=== PATIENT | male | born 1960 | race African-American/Black ===

== ENCOUNTER 2017-06-17 13:01 | Inpatient (IN) | payer OTHER ==
[2017-06-17 14:23] VITALS: BMI 24.7
--- NOTE | 2017-06-17 16:28 | HP ---
CIWA Score - CIWA Score Nausea/Vomitin-Mild Nausea/No Vomiting Muscle Tremors: 4-Moderate,w/Arms Extend Anxiety: 4-Mod. Anxious/Guarded Agitation: 4-Moderately Restless Paroxysmal Sweats: 1-Minimal Palms Moist Orientation: 0-Oriented Tacttile Disturbances: 0-None Auditory Disturbances: 0-None Visual Disturbances: 0-None Headache: 0-None Present CIWA-Ar Total Score: 14 Admission ROS BHS - HPI Chief Complaint: WITHDRAWAL SX Allergies/Adverse Reactions: Allergies Allergy/AdvReac Type Severity Reaction Status Date / Time No Known Allergies Allergy Verified 06/17/17 16:00 History of Present Illness: 56 YEARS OLD MALE WITH LONG HISTORY OF ALCOHOL NICOTINE COCAINE DEPENDENCE HAS POSITIVE PPD AND DEPRESSION IS ADMITTED TO DETOX Exam Limitations: No Limitations - Ebola screening Have you traveled outside of the country in the last 21 days: No Have you had contact with anyone from an Ebola affected area: No Have you been sick,other than usual withdrawal symptoms: No Do you have a fever: No - Review of Systems Constitutional: Loss of Appetite, Unintentional Wgt. Loss, Unexplained wgt Loss EENT: reports: Blurred Vision (EYE GLASSES) Respiratory: reports: No Symptoms reported Cardiac: reports: No Symptoms Reported GI: reports: Nausea, Poor Appetite, Poor Fluid Intake, Abdominal cramping : reports: No Symptoms Reported Musculoskeletal: reports: Joint Pain (KNEES + SHOULDERS X 10 YEARS) Integumentary: reports: No Symptoms Reported Neuro: reports: Tremors Endocrine: reports: No Symptoms Reported Hematology: reports: No Symptoms Reported Psychiatric: reports: Judgement Intact, Orientated x3, Depressed Other Systems: Reviewed and Negative Patient History - Patient Medical History Hx Anemia: No Hx Asthma: No Hx Chronic Obstructive Pulmonary Disease (COPD): No Hx Cancer: No Hx Cardiac Disorders: No Hx Congestive Heart Failure: No Hx Hypertension: No Hx Hypercholesterolemia: No Hx Pacemaker: No HX Cerebrovascular Accident: No Hx Seizures: No Hx Dementia: No Hx Diabetes: No Hx Gastrointestinal Disorders: No Hx Liver Disease: No Hx Genitourinary Disorders: No Hx Sexually Transmitted Disorders: No Hx Renal Disease (ESRD): No Hx Thyroid Disease: No Hx Human Immunodeficiency Virus (HIV): No Hx Hepatitis C: No Hx Depression: Yes Hx Suicide Attempt: No Hx Bipolar Disorder: No Hx Schizophrenia: No - Patient Surgical History Past Surgical History: No Hx Neurologic Surgery: No Hx Cataract Extraction: No Hx Cardiac Surgery: No Hx Lung Surgery: No Hx Breast Surgery: No Hx Breast Biopsy: No Hx Abdominal Surgery: No Hx Appendectomy: No Hx Cholecystectomy: No Hx Genitourinary Surgery: No Hx Orthopedic Surgery: No - PPD History Previous Implant?: Yes Documented Results: Positive w/o proof Implanted On Prior R Admission?: No PPD to be Administered?: No - Smoking Cessation Smoking history: Current every day smoker Have you smoked in the past 12 months: Yes Aproximately how many cigarettes per day: 10 Cigars Per Day: 0 Hx Chewing Tobacco Use: No Initiated information on smoking cessation: Yes 'Breaking Loose' booklet given: 06/17/17 - Substance & Tx. History Hx Alcohol Use: Yes Hx Substance Use: Yes Substance Use Type: Alcohol, Cocaine Hx Substance Use Treatment: Yes (01/2017 [facility]) - Substances Abused Alcohol Route: Oral Frequency: Daily Amount used: liquor- 2 pints, beer- 1 six pack Age of first use: 14 Date of Last Use: 06/16/17 Crack Route: Smoking Frequency: 3-6 times per week Amount used: 20 dimes Age of first use: 26 Date of Last Use: 06/16/17 Family Disease History - Family Disease History Family Disease History: [place]: Father (), Other: Father, Mother () Admission Physical Exam S - Vital Signs Vital Signs: Vital Signs - 24 hr 06/17/17 14:21 Temperature 95.6 F L Pulse Rate 50 L Respiratory 18 Rate Blood Pressure 120/67 - Physical General Appearance: Yes: Appropriately Dressed, Mild Distress (PATIENT STATES THAT LIBRIUM 50 MG X 4 DOSES IS TOO STRONG, REQUESTS 25 MG X 4 DOSES), Thin, Tremorous, Irritable, Sweating, Anxious HEENTM: Yes: Hearing grossly Normal, Normal ENT Inspection, Normocephalic, Normal Voice, Other (EYE GLASSES) Respiratory: Yes: Chest Non-Tender, Lungs Clear, Normal Breath Sounds, No Respiratory Distress, No Accessory Muscle Use Neck: Yes: Supple, Trachea in good position Cardiology: Yes: Regular Rhythm, S1, S2, Bradycardia ("ALWAYS LOW") Abdominal: Yes: Normal Bowel Sounds, Non Tender, Soft Genitourinary: Yes: Within Normal Limits Back: Yes: Normal Inspection Musculoskeletal: Yes: full range of Motion, Gait Steady, Muscle Pain (KNEES + SHOULDERS) Extremities: Yes: Normal Inspection, Normal Range of Motion, Non-Tender, Tremors Neurological: Yes: Fully Oriented, Alert, Motor Strength 5/5, Normal Response, Depressed Affect Integumentary: Yes: Warm Lymphatic: Yes: Within Normal Limits - Diagnostic (1) Alcohol dependence with uncomplicated withdrawal Current Visit: Yes Status: Acute (2) Cocaine dependence, uncomplicated Current Visit: Yes Status: Chronic (3) Nicotine dependence Current Visit: Yes Status: Acute Qualifiers: Nicotine product type: cigarettes Substance use status: in withdrawal Qualified Code(s): F17.213 - Nicotine dependence, cigarettes, with withdrawal (4) Positive PPD, treated Current Visit: Yes Status: Resolved Cleared for Admission [facility] - Detox or Rehab [facility] Level of Care: Medically Managed Detox Regimen/Protocol: Librium [facility] Breath Alcohol Content Breath Alcohol Content: 0 Urine Drug Screen - Results Drug Screen Negative: No Urine Drug Screen Results: GIANA-Cocaine
[2017-06-17] MEDS ORDERED: MENTHOL/PHENOL 1 EACH UD MM PRN (16:29)
[2017-06-17] MEDS ORDERED: MAG HYDROX/AL HYDROX/SIMETH 30 ML UNIT-DOSE CUP PO PRN (16:29)
[2017-06-17] MEDS ORDERED: hydrOXYzine PAMOATE 50 MG CAPSULE (FP) PO PRN (16:29)
[2017-06-17] MEDS ORDERED: P-EPHED 60MG/TRIPROLIDI 2.5MG TABLET PO PRN (16:29)
[2017-06-17] MEDS ORDERED: LOPERAMIDE HCL 2 MG CAPSULE PO PRN (16:29)
[2017-06-17] MEDS ORDERED: guaiFENesin/D-METHORPHAN HB 10 ML UNIT-DOSE CUPS PO PRN (16:29)
[2017-06-17] MEDS ORDERED: MAGNESIUM HYDROX 2400MG/30ML ORAL SUSPENSION 30 ML CUP PO PRN (16:29)
[2017-06-17] MEDS ORDERED: NICOTINE POLACRILEX 2 MG GUM BC PRN (16:29)
[2017-06-17] MEDS ORDERED: chlordiazePOXIDE HCL 25 MG CAPSULE PO PRN (16:29)
[2017-06-17] MEDS ORDERED: MAGNESIUM CITRATE 300 ML BOTTLE PO PRN (16:29)
[2017-06-17] MEDS ORDERED: diphenhydrAMINE HCL 50 MG CAPSULE PO PRN (16:29)
[2017-06-17] MEDS ORDERED: ACETAMINOPHEN 325 MG TABLET (FP) PO PRN (16:29)
[2017-06-17] MEDS ORDERED: COLLOIDAL OATMEAL 1 BAR EACH TP PRN (16:37)
[2017-06-17] MEDS: chlordiazePOXIDE HCL 25 MG CAPSULE PO SCH (22:12)
[2017-06-17] MEDS: THIAMINE HCL 100 MG TABLET (FP) PO SCH (22:12)
[2017-06-17 22:13] LABS: URINE APPEARANCE CLEAR; URINE BILIRUBIN NEGATIVE (NEGATIVE); URINE BLOOD NEGATIVE (NEGATIVE); URINE COLOR YELLOW; URINE GLUCOSE (UA) NEGATIVE (NEGATIVE); URINE KETONE NEGATIVE (NEGATIVE); URINE LEUK ESTERASE NEGATIVE (NEGATIVE); URINE NITRITE NEGATIVE (NEGATIVE); URINE PROTEIN NEGATIVE (NEGATIVE); URINE UROBILINOGEN NEGATIVE mg/dL (0.2-1.0)
[2017-06-18] MEDS: chlordiazePOXIDE HCL 25 MG CAPSULE PO SCH ×4 (06:00→22:17)
[2017-06-18 10:01] LABS: MCH 23.5 pg (25.7-33.7); MCHC 31.2 g/dl (32.0-35.9); MEAN CELL VOLUME 75.2 fl (80-96); MEAN PLT VOLUME 8.9 fl (7.5-11.1); PLATELET COUNT 159 K/MM3 (134-434); RDW 15.1 % (11.9-15.9); WHITE BLOOD COUNT 4.2 K/mm3 (4.0-10.0)
[2017-06-18 10:16] LABS: CALCIUM 8.4 mg/dL (8.5-10.1); GLUCOSE,RANDOM 86 mg/dL (74-106)
[2017-06-18 10:22] LABS: ALK PHOS 75 U/L (45-117); ANION GAP 7 (8-16); BILIRUBIN,TOTAL 0.7 mg/dL (0.2-1.0); CO2 29 mmol/L (21-32); CREATININE 1.3 mg/dL (0.7-1.3); SGOT/AST 31 U/L (15-37); SGPT/ALT 29 U/L (12-78); TOT PROT 6.5 g/dl (6.4-8.2)
[2017-06-18] MEDS: PRENATAL VITAMINS W/ FOLIC ACID TABLET (FP) PO SCH (10:28)
[2017-06-18] MEDS: NICOTINE 14 MG/24 HOURS TOPICAL PATCH TD SCH (10:28)
--- NOTE | 2017-06-18 11:08 | CONSULT ---
[facility] Psychiatric Consult - Data Date of interview: 06/18/17 Admission source: [facility] Identifying data: This is 56 years old male with no psychiatric hospitalization history intoxicated with: Alcohol, Cocaine and Nicotine Substance Abuse History: - Smoking Cessation. Smoking history: Current every day smoker. Have you smoked in the past 12 months: Yes. Aproximately how many cigarettes per day: 10. Cigars Per Day: 0. Hx Chewing Tobacco Use: No. Initiated information on smoking cessation: Yes. 'Breaking Loose' booklet given : 06/17/17. - Substance & Tx. History. Hx Alcohol Use: Yes. Hx Substance Use : Yes. Substance Use Type: Alcohol, Cocaine. Hx Substance Use Treatment: Yes ( 01/2017 [facility]). - Substances Abused. Alcohol. Route: Oral. Frequency: Daily. Amount used: liquor- 2 pints, beer- 1 six pack. Age of first use: 14. Date of Last Use: 06/16/17. Crack. Route: Smoking. Frequency: 3-6 times per week. Amount used: 20 dimes. Age of first use: 26. Date of Last Use: Medical History: PPD+ history Psychiatric History: Denies past psychiatric history Physical/Sexual Abuse/Trauma History: Denies Additional Comment: Observation. Detox Unit Care Protocol Mental Status Exam - Mental Status Exam Alert and Oriented to: Person Cognitive Function: Fair Patient Appearance: Unkempt Mood: Sad Affect: Mood Congruent Patient Behavior: Cooperative Speech Pattern: Appropriate Voice Loudness: Normal Thought Process: Goal Oriented Thought Disorder: Being Controlled Hallucinations: Denies Suicidal Ideation: Denies Homicidal Ideation: Denies Insight/Judgement: Fair Appetite: Fair Muscle strength/Tone: Normal Gait/Station: Normal Additional Comments: Observation. Detox Unit Care Protocol Psychiatric Findings - Problem List ([place] 1, 2,3) (1) Alcohol dependence with uncomplicated withdrawal Current Visit: Yes Status: Acute (2) Nicotine dependence Current Visit: Yes Status: Acute Qualifiers: Nicotine product type: cigarettes Substance use status: in withdrawal Qualified Code(s): F17.213 - Nicotine dependence, cigarettes, with withdrawal (3) Cocaine dependence, uncomplicated Current Visit: Yes Status: Chronic (4) Drug-induced mood disorder Current Visit: Yes Status: Suspected - Initial Treatment Plan Initial Treatment Plan: Observation. Detox Unit Care Protocol
--- NOTE | 2017-06-18 11:17 | EKG ---
Test Reason : Blood Pressure : / mmHG Vent. Rate : 050 BPM Atrial Rate : 050 BPM P-R Int : 170 ms QRS Dur : 092 ms QT Int : 472 ms P-R-T Axes : 073 005 -05 degrees QTc Int : 430 ms SINUS BRADYCARDIA WITH SINUS ARRHYTHMIA ST ELEVATION, CONSIDER EARLY REPOLARIZATION, PERICARDITIS, OR INJURY ABNORMAL ECG NO PREVIOUS ECGS AVAILABLE Confirmed by RYAN MARROQUIN MD ([id number]) on 06/18/2017 11:17:17 AM Referred By: Confirmed By:RYAN MARROQUIN MD
--- NOTE | 2017-06-18 12:22 | PN ---
[facility] CIWA - CIWA Score Nausea/Vomitin-No Nausea/No Vomiting Muscle Tremors: 3 Anxiety: 4-Mod. Anxious/Guarded Agitation: 0-Normal Activity Paroxysmal Sweats: 3 Orientation: 0-Oriented Tacttile Disturbances: 3-Moderate Itch/Numb/Burn Auditory Disturbances: 0-None Visual Disturbances: 2-Mild Sensitivity Headache: 0-None Present CIWA-Ar Total Score: 15 BHS Progress Note (SOAP) Subjective: Anxious, Sweating, Fatigue. Objective: PT. A & O X 3, OBSERVED AMBULATING ON UNIT. NO ACUTE DISTRESS. PT. DENIES CHEST PAIN. PT. DENIES ANY HISTORY OF CARDIOVASCULAR DISEASE. 06/18/17 12:20 Vital Signs Temperature 96.7 F L 06/18/17 09:45 Pulse Rate 53 L 06/18/17 09:45 Respiratory Rate 16 06/18/17 09:45 Blood Pressure 111/65 06/18/17 09:45 O2 Sat by Pulse Oximetry (%) Laboratory Tests 06/17/17 06/18/17 06/18/17 21:45 07:00 07:00 WBC 4.2 RBC 5.70 H Hgb 13.4 Hct 42.8 MCV 75.2 L MCH 23.5 L MCHC 31.2 L RDW 15.1 Plt Count 159 MPV 8.9 Sodium 142 Potassium 4.1 Chloride 106 Carbon Dioxide 29 Anion Gap 7 L BUN 19 H Creatinine 1.3 Creat Clearance w eGFR 57.31 Random Glucose 86 Calcium 8.4 L Total Bilirubin 0.7 AST 31 ALT 29 Alkaline Phosphatase 75 Total Protein 6.5 Albumin 3.0 L Urine Color Yellow Urine Appearance Clear Urine pH 5.0 Urine Protein Negative Urine Glucose (UA) Negative Urine Ketones Negative Urine Blood Negative Urine Nitrite Negative Urine Bilirubin Negative Urine Urobilinogen Negative Ur Leukocyte Esterase Negative LABS NOTED. RPR AND HCV ANTIBODY RESULTS PENDING. 06/18/17 12:21 Assessment: 06/18/17 12:21 WITHDRAWAL SYMPTOMS. Plan: CONTINUE DETOX. INCREASE PO FLUID INTAKE.
--- NOTE | 2017-06-18 16:20 | EKG ---
Test Reason : Blood Pressure : / mmHG Vent. Rate : 054 BPM Atrial Rate : 054 BPM P-R Int : 164 ms QRS Dur : 090 ms QT Int : 458 ms P-R-T Axes : 038 -19 -11 degrees QTc Int : 434 ms SINUS BRADYCARDIA OTHERWISE NORMAL ECG WHEN COMPARED WITH ECG OF 17-JUN-2017 17:16, NO SIGNIFICANT CHANGE WAS FOUND Confirmed by RYAN MARROQUIN MD ([id number]) on 06/18/2017 4:20:03 PM Referred By: Confirmed By:RYAN MARROQUIN MD
[2017-06-18] MEDS: THIAMINE HCL 100 MG TABLET (FP) PO SCH (22:17)
[2017-06-19] MEDS: chlordiazePOXIDE HCL 25 MG CAPSULE PO SCH ×3 (05:21→17:54)
[2017-06-19] MEDS: IBUPROFEN 400 MG TABLET (FP) PO PRN (06:00)
[2017-06-19] MEDS: PRENATAL VITAMINS W/ FOLIC ACID TABLET (FP) PO SCH (10:14)
[2017-06-19] MEDS: NICOTINE 14 MG/24 HOURS TOPICAL PATCH TD SCH (10:14)
--- NOTE | 2017-06-19 11:12 | PN ---
S CIWA - CIWA Score Nausea/Vomitin Muscle Tremors: 2 Anxiety: 2 Agitation: 2 Paroxysmal Sweats: 3 Orientation: 0-Oriented Tacttile Disturbances: 2-Mild Itch/Numbness/Burn Auditory Disturbances: 0-None Visual Disturbances: 0-None Headache: 0-None Present CIWA-Ar Total Score: 13 S Progress Note (SOAP) Subjective: interrupted sleep, sweats, rt shoulder pain Objective: 06/19/17 11:10 Vital Signs Temperature 97.2 F L 06/19/17 10:16 Pulse Rate 61 06/19/17 10:16 Respiratory Rate 18 06/19/17 10:16 Blood Pressure 113/71 06/19/17 10:16 O2 Sat by Pulse Oximetry (%) Laboratory Tests 06/17/17 06/17/17 06/18/17 07:00 21:45 07:00 WBC 4.2 RBC 5.70 H Hgb 13.4 Hct 42.8 MCV 75.2 L MCH 23.5 L MCHC 31.2 L RDW 15.1 Plt Count 159 MPV 8.9 Sodium Potassium Chloride Carbon Dioxide Anion Gap BUN Creatinine Creat Clearance w eGFR Random Glucose Calcium Total Bilirubin AST ALT Alkaline Phosphatase Total Protein Albumin Urine Color Yellow Urine Appearance Clear Urine pH 5.0 Ur Specific [place] 1.025 Urine Protein Negative Urine Glucose (UA) Negative Urine Ketones Negative Urine Blood Negative Urine Nitrite Negative Urine Bilirubin Negative Urine Urobilinogen Negative Ur Leukocyte Esterase Negative RPR Titer Hepatitis C Antibody <0.1 06/18/17 06/18/17 07:00 07:00 WBC RBC Hgb Hct MCV MCH MCHC RDW Plt Count MPV Sodium 142 Potassium 4.1 Chloride 106 Carbon Dioxide 29 Anion Gap 7 L BUN 19 H Creatinine 1.3 Creat Clearance w eGFR 57.31 Random Glucose 86 Calcium 8.4 L Total Bilirubin 0.7 AST 31 ALT 29 Alkaline Phosphatase 75 Total Protein 6.5 Albumin 3.0 L Urine Color Urine Appearance Urine pH Ur Specific [place] Urine Protein Urine Glucose (UA) Urine Ketones Urine Blood Urine Nitrite Urine Bilirubin Urine Urobilinogen Ur Leukocyte Esterase RPR Titer Nonreactive Hepatitis C Antibody pt aox3 in nad ambulating Assessment: 06/19/17 11:10 withdrawal sx's rt shoulder pain Plan: cont. detox increase fluids analgesic balm motrin prn
[2017-06-19] MEDS: METHYL SALICYLATE/MENTHOL OINT 30 GM TUBE TP SCH (22:10)
[2017-06-19] MEDS: THIAMINE HCL 100 MG TABLET (FP) PO SCH (22:10)
[2017-06-19] MEDS: chlordiazePOXIDE 5 MG CAPSULE PO SCH (22:10)
[2017-06-20] MEDS: chlordiazePOXIDE 5 MG CAPSULE PO SCH ×3 (05:55→17:29)
[2017-06-20] MEDS: METHYL SALICYLATE/MENTHOL OINT 30 GM TUBE TP SCH ×2 (10:14→22:29)
[2017-06-20] MEDS: PRENATAL VITAMINS W/ FOLIC ACID TABLET (FP) PO SCH (10:14)
[2017-06-20] MEDS: NICOTINE 14 MG/24 HOURS TOPICAL PATCH TD SCH (10:14)
[2017-06-20] MEDS: LIDOCAINE 5% TOPICAL PATCH TP SCH (12:51)
--- NOTE | 2017-06-20 14:02 | PN ---
BHS Progress Note (SOAP) Subjective: Body Aches, Fatigue. Objective: PT. A & O X 3. NO ACUTE DISTRESS. 06/20/17 14:00 Vital Signs Temperature 99.9 F H 06/20/17 10:20 Pulse Rate 66 06/20/17 10:20 Respiratory Rate 20 06/20/17 10:20 Blood Pressure 126/72 06/20/17 10:20 O2 Sat by Pulse Oximetry (%) Laboratory Tests 06/17/17 06/17/17 06/18/17 07:00 21:45 07:00 WBC 4.2 RBC 5.70 H Hgb 13.4 Hct 42.8 MCV 75.2 L MCH 23.5 L MCHC 31.2 L RDW 15.1 Plt Count 159 MPV 8.9 Sodium Potassium Chloride Carbon Dioxide Anion Gap BUN Creatinine Creat Clearance w eGFR Random Glucose Calcium Total Bilirubin AST ALT Alkaline Phosphatase Total Protein Albumin Urine Color Yellow Urine Appearance Clear Urine pH 5.0 Ur Specific [place] 1.025 Urine Protein Negative Urine Glucose (UA) Negative Urine Ketones Negative Urine Blood Negative Urine Nitrite Negative Urine Bilirubin Negative Urine Urobilinogen Negative Ur Leukocyte Esterase Negative RPR Titer Hepatitis C Antibody <0.1 06/18/17 06/18/17 07:00 07:00 WBC RBC Hgb Hct MCV MCH MCHC RDW Plt Count MPV Sodium 142 Potassium 4.1 Chloride 106 Carbon Dioxide 29 Anion Gap 7 L BUN 19 H Creatinine 1.3 Creat Clearance w eGFR 57.31 Random Glucose 86 Calcium 8.4 L Total Bilirubin 0.7 AST 31 ALT 29 Alkaline Phosphatase 75 Total Protein 6.5 Albumin 3.0 L Urine Color Urine Appearance Urine pH Ur Specific [place] Urine Protein Urine Glucose (UA) Urine Ketones Urine Blood Urine Nitrite Urine Bilirubin Urine Urobilinogen Ur Leukocyte Esterase RPR Titer Nonreactive Hepatitis C Antibody labs noted. Assessment: 06/20/17 14:01 WITHDRAWAL SYMPTOMS. Plan: CONTINUE DETOX. INCREASE PO FLUID INTAKE.
[2017-06-20] MEDS: IBUPROFEN 400 MG TABLET (FP) PO PRN (17:30)
[2017-06-20] MEDS ORDERED: LIDOCAINE PATCH REMOVAL MC SCH (22:00)
[2017-06-20] MEDS: THIAMINE HCL 100 MG TABLET (FP) PO SCH (22:28)
[2017-06-20] MEDS: chlordiazePOXIDE HCL 10 MG CAPSULE PO SCH (22:28)
[2017-06-21] MEDS: chlordiazePOXIDE HCL 10 MG CAPSULE PO SCH ×2 (05:46→10:14)
[2017-06-21] MEDS: LIDOCAINE 5% TOPICAL PATCH TP SCH (10:11)
[2017-06-21] MEDS: PRENATAL VITAMINS W/ FOLIC ACID TABLET (FP) PO SCH (10:11)
[2017-06-21] MEDS: NICOTINE 14 MG/24 HOURS TOPICAL PATCH TD SCH (10:12)
[2017-06-21] MEDS: METHYL SALICYLATE/MENTHOL OINT 30 GM TUBE TP SCH (10:14)
[2017-06-21 13:04] VITALS: BP 124/80; PULSE 67; TEMP 97
--- NOTE | 2017-06-21 14:30 | DS ---
[facility] Detox Discharge Summary Admission Date: 06/17/17 Discharge Date: 06/21/17 - History Present History: Alcohol Dependence, Cocaine Dependence Pertinent Past History: PPD Positive - Physical Exam Results Vital Signs: Vital Signs Temperature 97 F L 06/21/17 13:03 Pulse Rate 67 06/21/17 13:03 Respiratory Rate 18 06/21/17 13:03 Blood Pressure 124/80 06/21/17 13:03 O2 Sat by Pulse Oximetry (%) Pertinent Admission Physical Exam Findings: Withdrawal symptoms Laboratory Tests 06/17/17 06/17/17 06/18/17 07:00 21:45 07:00 WBC 4.2 RBC 5.70 H Hgb 13.4 Hct 42.8 MCV 75.2 L MCH 23.5 L MCHC 31.2 L RDW 15.1 Plt Count 159 MPV 8.9 Sodium Potassium Chloride Carbon Dioxide Anion Gap BUN Creatinine Creat Clearance w eGFR Random Glucose Calcium Total Bilirubin AST ALT Alkaline Phosphatase Total Protein Albumin Urine Color Yellow Urine Appearance Clear Urine pH 5.0 Ur Specific [place] 1.025 Urine Protein Negative Urine Glucose (UA) Negative Urine Ketones Negative Urine Blood Negative Urine Nitrite Negative Urine Bilirubin Negative Urine Urobilinogen Negative Ur Leukocyte Esterase Negative RPR Titer Hepatitis C Antibody <0.1 06/18/17 06/18/17 07:00 07:00 WBC RBC Hgb Hct MCV MCH MCHC RDW Plt Count MPV Sodium 142 Potassium 4.1 Chloride 106 Carbon Dioxide 29 Anion Gap 7 L BUN 19 H Creatinine 1.3 Creat Clearance w eGFR 57.31 Random Glucose 86 Calcium 8.4 L Total Bilirubin 0.7 AST 31 ALT 29 Alkaline Phosphatase 75 Total Protein 6.5 Albumin 3.0 L Urine Color Urine Appearance Urine pH Ur Specific [place] Urine Protein Urine Glucose (UA) Urine Ketones Urine Blood Urine Nitrite Urine Bilirubin Urine Urobilinogen Ur Leukocyte Esterase RPR Titer Nonreactive Hepatitis C Antibody Labs noted: bun 19, serum creatinine 1.3, GFR 57.31 (MAGDIEL vs prerenal azotemia), encouraged to drink lots of water, repeat BMP in AM - Treatment Hospital Course: Detox Protocol Followed, Detoxed Safely, Responded well, Discharged Condition Good, Rehab Referral Accepted - Medication Discharge Medications: Ambulatory Orders Ibuprofen [Motrin -] 400 mg PO TID 06/17/17 - Diagnosis (1) Alcohol dependence with uncomplicated withdrawal Current Visit: Yes Status: Acute (2) Nicotine dependence Current Visit: Yes Status: Chronic Qualifiers: Nicotine product type: cigarettes Substance use status: in withdrawal Qualified Code(s): F17.213 - Nicotine dependence, cigarettes, with withdrawal (3) Cocaine dependence, uncomplicated Current Visit: Yes Status: Chronic (4) Positive PPD, treated Current Visit: Yes Status: Chronic (5) MAGDIEL (acute kidney injury) Current Visit: Yes Status: Acute - AMA Did Patient Leave Against Medical Advice: No
== END 2017-06-21 17:36 | disposition other institution (70) | DRG 774 ==
LOC: YASAS 13:01 → Y3N 17:16
PROVIDERS: ADMIT Internal Medicine; ATTEND Internal Medicine
PROC: HZ2ZZZZ Detoxification Services for Substance Abuse Treatment (ICD-10-PCS; principal; 2017-06-17)
DX: F10.230 Alcohol dependence with withdrawal, uncomplicated (principal); F14.20 Cocaine dependence, uncomplicated; F17.210 Nicotine dependence, cigarettes, uncomplicated; F19.24 Other psychoactive substance dependence with psychoactive substance-induced mood disorder; R76.11 Nonspecific reaction to tuberculin skin test without active tuberculosis; N17.9 Acute kidney failure, unspecified; M25.511 Pain in right shoulder; R00.1 Bradycardia, unspecified
CPT/HCPCS: 36415; 71020-TC; 80053; 81003; 85027; 86593; 86803; 93005; 93010

== ENCOUNTER 2017-06-21 17:45 | Inpatient (IN) | payer OTHER ==
[2017-06-21] MEDS ORDERED: MAG HYDROX/AL HYDROX/SIMETH 30 ML UNIT-DOSE CUP PO PRN (17:54)
[2017-06-21] MEDS ORDERED: guaiFENesin/D-METHORPHAN HB 10 ML UNIT-DOSE CUPS PO PRN (17:54)
[2017-06-21] MEDS ORDERED: diphenhydrAMINE HCL 50 MG CAPSULE PO PRN (17:54)
[2017-06-21] MEDS ORDERED: MAGNESIUM CITRATE 300 ML BOTTLE PO PRN (17:54)
[2017-06-21] MEDS ORDERED: MENTHOL/PHENOL 1 EACH UD MM PRN (17:54)
[2017-06-21] MEDS ORDERED: P-EPHED 60MG/TRIPROLIDI 2.5MG TABLET PO PRN (17:54)
[2017-06-21] MEDS ORDERED: ACETAMINOPHEN 325 MG TABLET (FP) PO PRN (17:54)
[2017-06-21] MEDS ORDERED: MAGNESIUM HYDROX 2400MG/30ML ORAL SUSPENSION 30 ML CUP PO PRN (17:54)
[2017-06-21] MEDS ORDERED: LOPERAMIDE HCL 2 MG CAPSULE PO PRN (17:54)
[2017-06-21] MEDS ORDERED: hydrOXYzine PAMOATE 50 MG CAPSULE (FP) PO PRN (17:54)
--- NOTE | 2017-06-21 17:54 | HP ---
[facility] Rehab Assess/Revision - Admission History Ad[facility] to Rehab [facility] Date of Admission to Rehab: 06/21/17 - Findings Detox History & Physical reviewed: Yes Concur with findings: Yes Comments/Additional Findings: for rehab as protocol
[2017-06-21] MEDS: THIAMINE HCL 100 MG TABLET (FP) PO SCH (21:46)
[2017-06-22] MEDS: PRENATAL VITAMINS W/ FOLIC ACID TABLET (FP) PO SCH (10:40)
[2017-06-22] MEDS: NICOTINE 14 MG/24 HOURS TOPICAL PATCH TD SCH (10:41)
--- NOTE | 2017-06-22 12:11 | PN ---
BHS Progress Note Note: pain in the right shoulder on and off for 1 year,no trauma, limitation on abduction xray of right shoulder motrin 400 mg po q 6hrs for pain
--- NOTE | 2017-06-22 12:29 | HP ---
Psychiatrist Admission - Data Date of interview: 06/22/17 Admission source: 3N Identifying data: This is the first 5N inpatient rehabilitation admission for this 56 year old divorecd AA male, unemployed and residing in the senior living. Medical History: Arthritis Both Knees and shoulder, and H/o Positive PPD. since 1989, treated with INH, smokes cigaretets 1/2 PPD. Psychiatric History: patient denies history of psychiatric treatment, reports due to his cuurent life situation (unemployed and lives in the [facility]) he feels sad and depressed. Physical/Sexual Abuse/Trauma History: denies history of sexual, physical and verbal abuse. Vital Signs: Vital Signs - 24 hr 06/21/17 06/22/17 06/22/17 18:05 00:30 03:30 Temperature 98.2 F Pulse Rate 80 Respiratory 18 18 18 Rate Blood Pressure 137/78 06/22/17 07:21 Temperature 97.3 F L Pulse Rate 60 Respiratory 18 Rate Blood Pressure 104/63 Allergies/Adverse Reactions: Allergies Allergy/AdvReac Type Severity Reaction Status Date / Time No Known Allergies Allergy Verified 06/21/17 17:48 Date of last physical exam: 06/17/17 Concur with the findings of this exam: Yes - Substance Abuse/Tx History Hx Alcohol Use: Yes (age of first age 14, daily 2 pints of liquor, beer 1 six pack) Hx Substance Use: Yes (cocaine - age of first use 26) Substance Use Type: Cocaine (3-6 times a week) Hx Substance Use Treatment: Yes (in 1993 was ininpatient rehab. treatment program.) - Admission Criteria Previous failed treatment: Yes Poor recovery environment: Yes Comorbidities: No Lacks judgement: Yes Mental Status Exam - Mental Status Exam Alert and Oriented to: Time, Place, Person Cognitive Function: Good Patient Appearance: Well Groomed Mood: Depressed, Sad Affect: Appropriate, Mood Congruent Patient Behavior: Appropriate, Cooperative Speech Pattern: Clear, Appropriate Voice Loudness: Normal Thought Process: Intact, Goal Oriented Thought Disorder: Not Present Hallucinations: Denies Suicidal Ideation: Denies Homicidal Ideation: Denies Insight/Judgement: Fair Sleep: Fair Appetite: Good Muscle strength/Tone: Normal Gait/Station: Normal Psychiatric Findings - Problem List ([place] 1, 2,3) (1) Nicotine dependence Current Visit: No Status: Chronic Qualifiers: (2) Drug-induced mood disorder Current Visit: No Status: Suspected (3) Alcohol dependence Current Visit: Yes Status: Acute (4) Cocaine dependence Current Visit: Yes Status: Acute - Initial Treatment Plan Initial Treatment Plan: will monitor progress as needed.
[2017-06-22] MEDS: THIAMINE HCL 100 MG TABLET (FP) PO SCH (21:41)
[2017-06-23] MEDS: NICOTINE 14 MG/24 HOURS TOPICAL PATCH TD SCH (10:51)
[2017-06-23] MEDS: PRENATAL VITAMINS W/ FOLIC ACID TABLET (FP) PO SCH (10:51)
[2017-06-23] MEDS: IBUPROFEN 400 MG TABLET (FP) PO PRN (10:53)
--- NOTE | 2017-06-23 12:22 | PN ---
BHS Progress Note Note: xray of right shoulder mild degenerative change,noted, treatment lidoderm patch right shoulder
[2017-06-23] MEDS: LIDOCAINE 5% TOPICAL PATCH TP SCH (13:11)
[2017-06-23] MEDS: THIAMINE HCL 100 MG TABLET (FP) PO SCH (21:31)
[2017-06-23] MEDS: LIDOCAINE PATCH REMOVAL MC SCH (21:31)
[2017-06-24] MEDS: PRENATAL VITAMINS W/ FOLIC ACID TABLET (FP) PO SCH (10:03)
[2017-06-24] MEDS: NICOTINE 14 MG/24 HOURS TOPICAL PATCH TD SCH (10:04)
[2017-06-24] MEDS: LIDOCAINE 5% TOPICAL PATCH TP SCH (10:04)
[2017-06-24] MEDS: LIDOCAINE PATCH REMOVAL MC SCH (21:38)
[2017-06-24] MEDS: THIAMINE HCL 100 MG TABLET (FP) PO SCH (21:38)
[2017-06-25] MEDS: PRENATAL VITAMINS W/ FOLIC ACID TABLET (FP) PO SCH (10:20)
[2017-06-25] MEDS: LIDOCAINE 5% TOPICAL PATCH TP SCH (10:21)
[2017-06-25] MEDS: NICOTINE 14 MG/24 HOURS TOPICAL PATCH TD SCH (10:22)
[2017-06-25] MEDS: IBUPROFEN 400 MG TABLET (FP) PO PRN (18:40)
[2017-06-25] MEDS: THIAMINE HCL 100 MG TABLET (FP) PO SCH (22:03)
[2017-06-25] MEDS: LIDOCAINE PATCH REMOVAL MC SCH (22:03)
[2017-06-26 02:02] LABS: HIV 1 & 2 AB NEGATIVE; HIV 1 AGp24 NEGATIVE
[2017-06-26] MEDS: LIDOCAINE 5% TOPICAL PATCH TP SCH (10:18)
[2017-06-26] MEDS: NICOTINE 14 MG/24 HOURS TOPICAL PATCH TD SCH (10:18)
[2017-06-26] MEDS: PRENATAL VITAMINS W/ FOLIC ACID TABLET (FP) PO SCH (10:19)
[2017-06-26] MEDS: THIAMINE HCL 100 MG TABLET (FP) PO SCH (21:29)
[2017-06-26] MEDS: LIDOCAINE PATCH REMOVAL MC SCH (21:29)
[2017-06-27] MEDS: PRENATAL VITAMINS W/ FOLIC ACID TABLET (FP) PO SCH (10:12)
[2017-06-27] MEDS: NICOTINE 14 MG/24 HOURS TOPICAL PATCH TD SCH (10:12)
[2017-06-27] MEDS: LIDOCAINE 5% TOPICAL PATCH TP SCH (10:13)
[2017-06-27] MEDS: IBUPROFEN 400 MG TABLET (FP) PO PRN ×2 (10:13→21:29)
[2017-06-27] MEDS: THIAMINE HCL 100 MG TABLET (FP) PO SCH (21:28)
[2017-06-27] MEDS: LIDOCAINE PATCH REMOVAL MC SCH (21:29)
[2017-06-28] MEDS: PRENATAL VITAMINS W/ FOLIC ACID TABLET (FP) PO SCH (10:13)
[2017-06-28] MEDS: NICOTINE 14 MG/24 HOURS TOPICAL PATCH TD SCH (10:14)
[2017-06-28] MEDS: IBUPROFEN 400 MG TABLET (FP) PO PRN ×2 (10:14→21:27)
[2017-06-28] MEDS: LIDOCAINE 5% TOPICAL PATCH TP SCH (10:14)
[2017-06-28] MEDS: LIDOCAINE PATCH REMOVAL MC SCH (21:26)
[2017-06-28] MEDS: THIAMINE HCL 100 MG TABLET (FP) PO SCH (21:26)
[2017-06-29] MEDS: LIDOCAINE 5% TOPICAL PATCH TP SCH (10:09)
[2017-06-29] MEDS: PRENATAL VITAMINS W/ FOLIC ACID TABLET (FP) PO SCH (10:09)
[2017-06-29] MEDS: NICOTINE 14 MG/24 HOURS TOPICAL PATCH TD SCH (10:10)
[2017-06-29] MEDS: LIDOCAINE PATCH REMOVAL MC SCH (21:38)
[2017-06-29] MEDS: THIAMINE HCL 100 MG TABLET (FP) PO SCH (21:38)
[2017-06-30] MEDS: LIDOCAINE 5% TOPICAL PATCH TP SCH (10:24)
[2017-06-30] MEDS: NICOTINE 14 MG/24 HOURS TOPICAL PATCH TD SCH (10:24)
[2017-06-30] MEDS: IBUPROFEN 400 MG TABLET (FP) PO PRN (10:25)
[2017-06-30] MEDS: PRENATAL VITAMINS W/ FOLIC ACID TABLET (FP) PO SCH (10:25)
[2017-06-30] MEDS: PANTOPRAZOLE 40 MG TABLET (FP) PO SCH (14:54)
[2017-06-30] MEDS: NAPROXEN 500 MG TABLET (FP) PO SCH ×2 (14:54→21:40)
[2017-06-30] MEDS: THIAMINE HCL 100 MG TABLET (FP) PO SCH (21:40)
[2017-06-30] MEDS: LIDOCAINE PATCH REMOVAL MC SCH (21:40)
[2017-07-01] MEDS: LIDOCAINE 5% TOPICAL PATCH TP SCH (10:21)
[2017-07-01] MEDS: NICOTINE 14 MG/24 HOURS TOPICAL PATCH TD SCH (10:22)
[2017-07-01] MEDS: NAPROXEN 500 MG TABLET (FP) PO SCH ×2 (10:22→21:37)
[2017-07-01] MEDS: PRENATAL VITAMINS W/ FOLIC ACID TABLET (FP) PO SCH (10:22)
[2017-07-01] MEDS: PANTOPRAZOLE 40 MG TABLET (FP) PO SCH (10:22)
[2017-07-01] MEDS: LIDOCAINE PATCH REMOVAL MC SCH (21:37)
[2017-07-01] MEDS: THIAMINE HCL 100 MG TABLET (FP) PO SCH (21:37)
[2017-07-02] MEDS: NICOTINE 14 MG/24 HOURS TOPICAL PATCH TD SCH (10:29)
[2017-07-02] MEDS: NAPROXEN 500 MG TABLET (FP) PO SCH ×2 (10:30→21:36)
[2017-07-02] MEDS: PRENATAL VITAMINS W/ FOLIC ACID TABLET (FP) PO SCH (10:30)
[2017-07-02] MEDS: LIDOCAINE 5% TOPICAL PATCH TP SCH (10:31)
[2017-07-02] MEDS: PANTOPRAZOLE 40 MG TABLET (FP) PO SCH (10:34)
[2017-07-02] MEDS: THIAMINE HCL 100 MG TABLET (FP) PO SCH (21:36)
[2017-07-02] MEDS: LIDOCAINE PATCH REMOVAL MC SCH (21:36)
[2017-07-03] MEDS: PRENATAL VITAMINS W/ FOLIC ACID TABLET (FP) PO SCH (10:22)
[2017-07-03] MEDS: LIDOCAINE 5% TOPICAL PATCH TP SCH (10:22)
[2017-07-03] MEDS: NICOTINE 14 MG/24 HOURS TOPICAL PATCH TD SCH (10:22)
[2017-07-03] MEDS: NAPROXEN 500 MG TABLET (FP) PO SCH ×2 (10:22→21:32)
[2017-07-03] MEDS: PANTOPRAZOLE 40 MG TABLET (FP) PO SCH (10:22)
[2017-07-03] MEDS: THIAMINE HCL 100 MG TABLET (FP) PO SCH (21:32)
[2017-07-03] MEDS: LIDOCAINE PATCH REMOVAL MC SCH (21:33)
[2017-07-04] MEDS: NICOTINE 14 MG/24 HOURS TOPICAL PATCH TD SCH (10:18)
[2017-07-04] MEDS: PANTOPRAZOLE 40 MG TABLET (FP) PO SCH (10:19)
[2017-07-04] MEDS: NAPROXEN 500 MG TABLET (FP) PO SCH ×2 (10:19→21:38)
[2017-07-04] MEDS: PRENATAL VITAMINS W/ FOLIC ACID TABLET (FP) PO SCH (10:19)
[2017-07-04] MEDS: LIDOCAINE 5% TOPICAL PATCH TP SCH (10:19)
[2017-07-04] MEDS: THIAMINE HCL 100 MG TABLET (FP) PO SCH (21:38)
[2017-07-04] MEDS: LIDOCAINE PATCH REMOVAL MC SCH (21:38)
[2017-07-05] MEDS: PANTOPRAZOLE 40 MG TABLET (FP) PO SCH (10:06)
[2017-07-05] MEDS: PRENATAL VITAMINS W/ FOLIC ACID TABLET (FP) PO SCH (10:06)
[2017-07-05] MEDS: NAPROXEN 500 MG TABLET (FP) PO SCH ×2 (10:06→21:36)
[2017-07-05] MEDS: NICOTINE 14 MG/24 HOURS TOPICAL PATCH TD SCH (10:06)
[2017-07-05] MEDS: LIDOCAINE 5% TOPICAL PATCH TP SCH (10:07)
[2017-07-05] MEDS: LIDOCAINE PATCH REMOVAL MC SCH (21:36)
[2017-07-05] MEDS: THIAMINE HCL 100 MG TABLET (FP) PO SCH (21:36)
[2017-07-06 07:41] VITALS: BP 119/77; PULSE 51; TEMP 98.3
--- NOTE | 2017-07-06 09:26 | PN ---
Psychiatric Progress Note Vital Signs: Vital Signs Period Temp Pulse Resp BP Sys/Barnard Pulse Ox Last 24 Hr 98.3 F 51 18-18 119/77 Date of Session: 07/06/17 Chief Complaint:: discharge visit HPI: Patient has addressed alcohol,cocaine dependence comorbid drug induced mood disorder. ROS: Arthritis Both Knees and shoulder Current Medications: Active Medications Generic Name Dose Route Start Last Admin Trade Name Freq PRN Reason Stop Dose Admin Acetaminophen 650 mg 06/21/17 17:54 06/25/17 14:14 Tylenol - PO 650 mg Q4H PRN Administration FEVER OR PAIN Al Hydroxide/Mg Hydroxide 30 ml 06/21/17 17:54 Mylanta Oral Suspension - PO Q6H PRN DYSPEPSIA Eucalyptus/Menthol/Phenol/Sorbitol 1 each 06/21/17 17:54 Cepastat Lozenge - MM Q4H PRN SORE THROAT Lidocaine 1 patch 06/23/17 13:00 07/05/17 10:07 Lidoderm Patch - TP 1 patch DAILY ANNE-MARIE Administration Loperamide HCl 4 mg 06/21/17 17:54 Imodium - PO Q6H PRN DIARRHEA Magnesium Hydroxide 30 ml 06/21/17 17:54 Milk Of Magnesia - PO DAILY PRN CONSTIPATION Miscellaneous 1 each 06/23/17 22:00 07/05/17 21:36 Lidoderm Patch Removal MC 1 each DAILY@2200 ANNE-MARIE Administration Naproxen 500 mg 06/30/17 15:00 07/05/17 21:36 Naprosyn - PO 500 mg BID ANNE-MARIE Administration Nicotine 14 mg 06/22/17 10:00 07/05/17 10:06 Nicoderm Patch - TD 14 mg DAILY ANNE-MARIE Administration Pantoprazole Sodium 40 mg 06/30/17 15:00 07/05/17 10:06 Protonix - PO 40 mg DAILY ANNE-MARIE Administration Multivit/Folic Acid/Iron 1 tab 06/22/17 10:00 07/05/17 10:06 Vitamins (Sjr) - PO 1 tab DAILY ANNE-MARIE Administration Pseudoephedrine/Triprolidine 1 combo 06/21/17 17:54 Actifed - PO TID PRN NASAL CONGESTION Thiamine HCl 100 mg 06/21/17 22:00 07/05/17 21:36 Vitamin B1 - PO 100 mg HS ANNE-MARIE Administration Current Side Effect: No Lab tests ordered: No Lab tests reviewed: Yes Provider note:: Patient has completed treatment today, he met his goals, will continue to address his issues at [place] outpatient treatment program. Patient gained insigts into importance of changing attitudes, using coping skills and utilize all supports available to prevent relapses.He was educated on his addiction, implications and consequences on his physical and mental health, the importance to maintain sobriety. Supportive psychotherapy provided, patient is stable for discharge today. Total face to face time:: 25 Mental Status Exam - Mental Status Exam Alert and Oriented to: Time, Place, Person Cognitive Function: Good Patient Appearance: Well Groomed Mood: Hopeful Affect: Appropriate, Mood Congruent Patient Behavior: Appropriate, Cooperative Speech Pattern: Clear, Appropriate Voice Loudness: Normal Thought Process: Intact, Goal Oriented Thought Disorder: Not Present Hallucinations: Denies Suicidal Ideation: Denies Homicidal Ideation: Denies Insight/Judgement: Fair Sleep: Fair Appetite: Good Muscle strength/Tone: Normal Gait/Station: Normal Psychiatric Treatment Plan - Problem List (1) Nicotine dependence Qualifiers:
[2017-07-06] MEDS: PANTOPRAZOLE 40 MG TABLET (FP) PO SCH (10:31)
[2017-07-06] MEDS: PRENATAL VITAMINS W/ FOLIC ACID TABLET (FP) PO SCH (10:31)
[2017-07-06] MEDS: NAPROXEN 500 MG TABLET (FP) PO SCH (10:31)
[2017-07-06] MEDS: LIDOCAINE 5% TOPICAL PATCH TP SCH (10:32)
[2017-07-06] MEDS: NICOTINE 14 MG/24 HOURS TOPICAL PATCH TD SCH (10:33)
== END 2017-07-06 11:30 | disposition home or self-care (01) | DRG 772 ==
LOC: YASAS 17:45 → Y5N 17:46
PROVIDERS: ADMIT Psychiatry & Neurology Psychiatry; ATTEND Psychiatry & Neurology Psychiatry
PROC: HZ42ZZZ Group Counseling for Substance Abuse Treatment, Cognitive-Behavioral (ICD-10-PCS; principal; 2017-06-21)
DX: F10.20 Alcohol dependence, uncomplicated (principal); F12.20 Cannabis dependence, uncomplicated; F17.210 Nicotine dependence, cigarettes, uncomplicated; F19.24 Other psychoactive substance dependence with psychoactive substance-induced mood disorder; M13.862 Other specified arthritis, left knee; M13.861 Other specified arthritis, right knee; M13.811 Other specified arthritis, right shoulder; R76.11 Nonspecific reaction to tuberculin skin test without active tuberculosis
CPT/HCPCS: 36415; 73030-TC-RT; 87389